=== PATIENT | male | born 1990 | race Caucasian/White ===

== ENCOUNTER 2018-05-08 14:02 | Emergency (ER) | payer MEDICAID ==
[2018-05-08 14:25] VITALS: BP 107/67
--- NOTE | 2018-05-08 15:55 | UC ---
Hand/Wrist HPI - HPI Summary HPI Summary: 27 yo male presents with left hand and 2nd-3rd fingers intermittent numbness for the last week. He tells me that for the last week he will have pain radiating from his LEFT wrist to his left 2nd-3rd fingers accompanied by intermittent numbness. He is right hand dominant. He works doing [employer] and admits to doing a lot of work with his hands. Denies specific injury - History Of Current Complaint Chief Complaint: UCUpperExtremity Stated Complaint: HAND AND ARM PAIN Time Seen by Provider: 05/08/18 15:55 Hx Obtained From: Patient Onset/Duration: Gradual Onset Severity Initially: Moderate Severity Currently: Moderate Pain Intensity: 6 Pain Scale Used: 0-10 Numeric - Allergies/Home Medications Allergies/Adverse Reactions: Allergies Allergy/AdvReac Type Severity Reaction Status Date / Time bee venom protein (honey bee) Allergy anaph Verified 05/08/18 14:25 Home Medications: Home Medications Buprenorphine HCl/Naloxone HCl [Suboxone 4 mg-1 mg Sl Film] 1 tab PO DAILY 05/08 [History Confirmed 05/08/18] PMH/Surg Hx/FS Hx/Imm Hx - Additional Past Medical History Additional PMH: None Previously Healthy: Yes - Surgical History Surgical History: None - Family History Known Family History: Positive: None - Social History Occupation: Employed Full-time Lives: With Family Alcohol Use: None Substance Use Type: Other - Prior use of opioids Smoking Status (MU): Current Every Day Smoker Review of Systems Constitutional: Negative Skin: Negative Respiratory: Negative Cardiovascular: Negative Musculoskeletal: Other: - Left hand pain Neurological: Paresthesia - Left 2nd-3rd fingers Psychological: Negative All Other Systems Reviewed And Are Negative: Yes Physical Exam - Summary Physical Exam Summary: GENERAL: NAD. WDWN. No pain distress. SKIN: No rashes, sores, lesions, or open wounds. NECK: Supple. Nontender. No lymphadenopathy. CHEST: No accessory muscle use. Breathing comfortably and in no distress. CV: Pulses intact radial and ulnar. MSK: LEFT HAND/WRIST: Positive tinel's sign. Positive phalen test. FROM without pain. 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 No edema or obvious bony deformities. No snuffbox tenderness. NEURO: Alert. Sensations intact hand and all fingers. PSYCH: Age appropriate behavior. Triage Information Reviewed: Yes Vital Signs: Initial Vital Signs Temp 98 F 05/08/18 14:21 Pulse 68 05/08/18 14:21 Resp 16 05/08/18 14:21 BP 107/67 05/08/18 14:21 Pulse Ox 99 05/08/18 14:21 Vital Signs Reviewed: Yes Hand/Wrist Course/Dx - Course Course Of Treatment: Suspect left CTS. Provided with a cock-up splint and advised to f/u with Orthopedics for further eval. Tylenol/ibuprofen prn pain - Differential Dx/Diagnosis Provider Diagnoses: Left wrist pain Discharge - Sign-Out/Discharge Documenting (check all that apply): Patient Departure - Discharge Plan Condition: Stable Disposition: HOME Patient Education Materials: Paresthesia (ED) Forms: *Work Release Referrals: No Primary Care Phys,NOPCP [Primary Care Provider] - Michael Guerrero MD [Medical Doctor] - As Soon As Possible Additional Instructions: If you develop a fever, shortness of breath, chest pain, new or worsening symptoms - please call your PCP or go to the ED. 1) Please call Orthopedics at the number below to schedule a follow up appointment as soon as possible - Billing Disposition and Condition Condition: STABLE Disposition: Home
== END 2018-05-08 16:44 | disposition home or self-care (01) ==
LOC: UCEAST 14:02
DX: M25.532 Pain in left wrist (principal); R20.0 Anesthesia of skin; Z91.030 Bee allergy status; F17.200 Nicotine dependence, unspecified, uncomplicated
CPT/HCPCS: 99211; G0463